=== PATIENT | female | born 1940 | race Caucasian/White ===

== ENCOUNTER 2016-04-22 14:35 | Inpatient (IN) | payer MEDICARE, BC ==
[~2016-04-22] VITALS: Ht 167.6 cm; Wt 86.4 kg
[~2016-04-22 14:35] MED LIST: ACET500T3 PO; ALPR.25 PO; APIX5TAB PO; ASPI81TA11 PO; CARD180C5 PO; CENTTAB PO; DIOV40TA PO; LEVE250 PO; LIPI40TA PO; LISI40TA PO; MELA5TAB15 PO; METO100T PO; POTA-243 PO; SERT-132 PO; TRIA37.5 PO
[2016-04-22 14:39] VITALS: BP 124/64; PULSE 63; RESP 20; TEMP 97.9; O2SAT 98
--- NOTE | 2016-04-22 14:54 | PD ---
HPI Chief Complaint: General Weakness Time Seen by Provider: 14:41 Travel History International Travel<30 days: No Contact w/Intl Traveler<30days: No Traveled to known affect area: No History of Present Illness HPI This is a 75-year-old female with a history of stroke who presents to the emergency department having woken up this morning feeling dizzy and not herself. When she got out of bed she felt like her left leg was very weak. She was unable to walk and felt like she was stumbling from side to side. She has difficulty seeing on the left side but she says that that's been similar since she had a stroke in February. She denies any headache or vomiting. Her retirement appreciated her symptoms and ran some tests and ultimately sent her to the emergency department to be evaluated for stroke. PFSH Past Medical History Arthritis: Yes Asthma: No Atrial Fibrillation: Yes Autoimmune Disease: No Blood Disorders: No Anxiety: Yes Depression: No Heart Rhythm Problems: Yes (afib) Cancer: No Cardiovascular Problems: Yes (CAD) High Cholesterol: No Chemotherapy: No Chest Pain: No Congestive Heart Failure: No COPD: Yes Cerebrovascular Accident: Yes Diabetes: No Diminished Hearing: Yes Endocrine: No GERD: No Genitourinary: No Hepatitis: No Hiatal Hernia: No Hypertension: Yes Immune Disorder: No Kidney Stones: No Musculoskeletal: Yes Neurologic: No Psychiatric: No Reproductive: No Respiratory: Yes Migraines: No Myocardial Infarction: Yes Radiation Therapy: No Renal Failure: No Seizures: No Sleep Apnea: No Thyroid Disease: No Ulcer: No ?: Not Menopausal: Yes Tubal Ligation: Yes Past Surgical History Abdominal Surgery: No AICD: No Arteriovenous Shunt: No Body Medical Devices: CERVICAL HARDWARE Cardiac Surgery: No Ear Surgery: Yes (RIGHT INNER EAR REPAIR ) Endocrine Surgery: No Eye Surgery: No Genitourinary Surgery: No Gynecologic Surgery: No Insulin Pump: No Joint Replacement: Yes (annetta knee and cervical spine) Oral Surgery: No Pacemaker: No Thoracic Surgery: No Other Surgery: Yes (VEINS STRIPPED) Social History Alcohol Use: No Tobacco Use: No Substance Use: No Allergies-Medications (Allergen,Severity, Reaction): Coded Allergies: No Known Allergies (Verified , 11/18/12) Reported Meds & Prescriptions Reported Meds & Active Scripts Active Acetaminophen 500 Mg Tab 1,000 Mg PO Q8HR PRN 30 Days Keppra (Levetiracetam) 250 Mg Tab 250 Mg PO Q12HR Cardizem CD 24 HR (Diltiazem CD 24 HR) 180 Mg Caper 180 Mg PO DAILY 30 Days Aspirin EC (Aspirin) 81 Mg Tabdr 81 Mg PO DAILY Xanax (Alprazolam) 0.25 Mg Tab 0.25 Mg PO HS Lipitor (Atorvastatin Calcium) 40 Mg Tab 40 Mg PO HS Eliquis (Apixaban) 5 Mg Tab 5 Mg PO Q12H Sertraline (Sertraline HCl) 50 Mg Tab 50 Mg PO DAILY Klor-Con 10 (Potassium Chloride) 10 Meq Tab 10 Meq PO DAILY Centrum Silver (Multiple Vitamins W/ Minerals) 1 Tab 1 Tab PO DAILY Metoprolol Tartrate 100 Mg Tab 100 Mg PO BID Lisinopril 40 Mg Tab 40 Mg PO DAILY Reported Tramadol (Tramadol HCl) 50 Mg Tab 2 Tab PO Q4H PRN Triamterene-Hydrochlorothiazide 50-25 Mg Cap 1 Cap PO DAILY Magnesium Oxide 500 Mg Tab 500 Mg PO DAILY Losartan (Losartan Potassium) 25 Mg Tab 25 Mg PO DAILY Lidocaine Patch 12 HR (Lidocaine) 5 % Patch 1 Patch TOPICAL BID Remove patch after 12 hours Melatonin 5 Mg Tab 6 Mg PO HS Review of Systems Except as stated in HPI: all other systems reviewed are Neg Physical Exam Narrative GENERAL:Well appearing, no acute distress SKIN: Warm and dry. HEAD: Atraumatic. Normocephalic. EYES: Pupils equal and round. No injection or drainage. ENT: Moist mucous membranes NECK: Trachea midline. CARDIOVASCULAR: Regular rate and rhythm. No murmur appreciated. RESPIRATORY: Clear to auscultation. Breath sounds equal bilaterally. GASTROINTESTINAL: Abdomen soft, non-tender, nondistended. MUSCULOSKELETAL: No obvious deformities. NEUROLOGICAL: Awake and alert. No obvious cranial nerve deficits. No dysarthria or aphasia. Left lower extremity drift. 4 out of 5 strength in the left lower extremity, 5 out of 5 strength in the right lower extremity. Left upper extremity ataxia. Poor vision of the left nasal visual field. PSYCHIATRIC: Appropriate mood and affect; insight and judgment normal. Data Data Last Documented VS Vital Signs Date Time Temp Pulse Resp B/P Pulse Ox O2 Delivery O2 Flow Rate FiO2 04/22/16 15:09 95 Room Air 04/22/16 14:39 97.9 63 20 124/64 Orders Electrocardiogram (04/22/16 14:49) Prothrombin Time / Inr (Pt) (04/22/16 14:49) Act Partial Throm Time (Ptt) (04/22/16 14:49) Complete Blood Count With Diff (04/22/16 14:49) Comprehensive Metabolic Panel (04/22/16 14:49) Troponin I (04/22/16 14:49) Ct Brain W/O Iv Contrast(Rout) (04/22/16 14:49) Ecg Monitoring (04/22/16 14:49) Iv Access Insert/Monitor (04/22/16 14:49) Oximetry (04/22/16 14:49) Cath For Specimen (04/22/16 14:49) Sodium Chloride 0.9% Flush (Ns Flush) (04/22/16 15:00) Urinalysis - C+S If Indicated (04/22/16 16:57) Admit Order (Ed Use Only) (04/22/16 17:05) Labs Laboratory Tests Test 04/22/16 04/22/16 15:40 16:50 White Blood Count 12.9 TH/MM3 Red Blood Count 4.44 MIL/MM3 Hemoglobin 14.4 GM/DL Hematocrit 42.7 % Mean Corpuscular Volume 96.2 FL Mean Corpuscular Hemoglobin 32.4 PG Mean Corpuscular Hemoglobin 33.7 % Concent Red Cell Distribution Width 13.4 % Platelet Count 262 TH/MM3 Mean Platelet Volume 9.1 FL Neutrophils (%) (Auto) 77.8 % Lymphocytes (%) (Auto) 11.9 % Monocytes (%) (Auto) 7.5 % Eosinophils (%) (Auto) 1.4 % Basophils (%) (Auto) 1.4 % Neutrophils # (Auto) 10.0 TH/MM3 Lymphocytes # (Auto) 1.5 TH/MM3 Monocytes # (Auto) 1.0 TH/MM3 Eosinophils # (Auto) 0.2 TH/MM3 Basophils # (Auto) 0.2 TH/MM3 CBC Comment AUTO DIFF Differential Total Cells 100 Counted Neutrophils % (Manual) 84 % Lymphocytes % 11 % Monocytes % 2 % Eosinophils % 3 % Neutrophils # (Manual) 10.8 TH/MM3 Differential Comment FINAL DIFF MANUAL Platelet Estimate NORMAL Platelet Morphology Comment NORMAL Prothrombin Time 10.7 SEC Prothromb Time International 1.0 RATIO Ratio Activated Partial 27.5 SEC Thromboplast Time Sodium Level 140 MEQ/L Potassium Level 3.7 MEQ/L Chloride Level 105 MEQ/L Carbon Dioxide Level 26.6 MEQ/L Anion Gap 8 MEQ/L Blood Urea Nitrogen 20 MG/DL Creatinine 1.08 MG/DL Estimat Glomerular Filtration 50 ML/MIN Rate Random Glucose 147 MG/DL Calcium Level 9.1 MG/DL Total Bilirubin 0.8 MG/DL Aspartate Amino Transf 16 U/L (AST/SGOT) Alanine Aminotransferase 22 U/L (ALT/SGPT) Alkaline Phosphatase 131 U/L Troponin I LESS THAN 0.02 NG/ML Total Protein 7.0 GM/DL Albumin 3.2 GM/DL Urine Color YELLOW Urine Turbidity CLEAR Urine pH 5.0 Urine Specific [place] 1.015 Urine Protein NEG mg/dL Urine Glucose (UA) NEG mg/dL Urine Ketones NEG mg/dL Urine Occult Blood NEG Urine Nitrite NEG Urine Bilirubin NEG Urine Urobilinogen LESS THAN 2.0 MG/DL Urine Leukocyte Esterase NEG Urine RBC 1 /hpf Urine WBC LESS THAN 1 /hpf Urine Mucus FEW /lpf Microscopic Urinalysis Comment CATH-CULT NOT IND MDM Medical Decision Making Medical Screen Exam Complete: Yes Emergency Medical Condition: Yes Interpretation(s) EKG: Atrial fibrillation Leukocytosis with left shift Troponin is normal Urinalysis: No infection Differential Diagnosis Ischemic stroke, intracranial hemorrhage, urinary tract infection, dehydration, seizure Narrative Course This is a 75-year-old female who presents to the emergency department with left lower extremity weakness and ataxia of the left upper extremity which is new. She was last normal yesterday. She is not a candidate for TPA because she is both on Eliquis and it seems her symptoms started overnight. She was placed on a monitor and an IV was established. Labs were obtained which were both for a mild leukocytosis. Urinalysis is negative for infection. CT was negative for intracranial hemorrhage. I think the patient requires admission for an MRI given her new neurologic findings as I suspect she's had a new ischemic stroke. Physician Communication Physician Communication Discussed with Dr. Menard Diagnosis Primary Impression: CVA (cerebral vascular accident) Qualified Code: I63.9 - Cerebrovascular accident (CVA), unspecified mechanism Admitting Information Admitting Physician Requests: Admit Olive Rodriguez MD Apr 22, 2016 14:54
[2016-04-22] MEDS ORDERED: LIDO1PAD52 TOPICAL (14:59)
[2016-04-22] MEDS ORDERED: LOSA25TA PO (14:59)
[2016-04-22] MEDS ORDERED: MAGN500T2 PO (14:59)
[2016-04-22] MEDS ORDERED: TRIA1CAP PO (14:59)
[2016-04-22] MEDS ORDERED: TRAM50TA PO (14:59)
[2016-04-22] MEDS ORDERED: SODIUM CHLORIDE 0.9% FLUSH 5 ML FLUSH IVF PRN ×2 (15:00→17:15)
[2016-04-22 15:09] VITALS: O2SAT 95
--- NOTE | 2016-04-22 15:34 | RADRPT ---
EXAM DATE/TIME: 04/22/2016 15:19 [facility] COMPARISON: MRI BRAIN W & W/O CONTRAST, February 24, 2016, 16:22. CT BRAIN W/O CONTRAST, February 28, 2016, 20: 50. INDICATIONS : Left leg weakness for four hours. RADIATION DOSE: 33.17 CTDIvol (mGy) MEDICAL HISTORY : Hypertension. Cardiovascular disease Stroke. SURGICAL HISTORY : Ear. ENCOUNTER: Initial ACUITY: 1 day PAIN SCALE: 0/10 LOCATION: cranial TECHNIQUE: Multiple contiguous axial images were obtained of the head. Using automated exposure control and adj ustment of the mA and/or kV according to patient size, radiation dose was kept as low as reasonably a chievable to obtain optimal diagnostic quality images. FINDINGS: CEREBRUM: The ventricles are normal for age. There is bilateral cortical atrophy and chronic white matter hardwick ges. Old stable areas of infarction are again noted in the right occipital lobe, right posterior michael etal lobe and left posterior parietal lobe without significant changes. No evidence of midline shift, mass lesion, hemorrhage or acute infarction. No extra-axial fluid collections are seen. POSTERIOR FOSSA: The cerebellum and brainstem are intact. The 4th ventricle is midline. The cerebellopontine angle i s unremarkable. EXTRACRANIAL: The visualized portion of the orbits is intact. SKULL: The calvaria is intact. No evidence of skull fracture. CONCLUSION: 1. Stable CT scan of the brain compared to the prior examination. 2. Stable areas of previously noted bilateral infarction. 3. No acute intracranial hemorrhage. Jeanmarie Alves MD on April 22, 2016 at 15:30 Board Certified Radiologist. This report was verified electronically.
[2016-04-22 16:01] LABS: BASOPHIL # 0.2 TH/MM3 (0-0.2); BASOPHIL % 1.4 % (0.0-2.0); EOSINOPHIL # 0.2 TH/MM3 (0-0.4); EOSINOPHIL % 1.4 % (0.0-4.0); HEMATOCRIT 42.7 % (35.0-46.0); LYMPH % 11.9 % (9.0-44.0); LYMPHOCYTE # 1.5 TH/MM3 (1.0-4.8); MEAN CELL VOLUME 96.2 FL (80.0-100.0); MEAN CORPUSCULAR HEMOGLOBIN 32.4 PG (27.0-34.0); MEAN CORPUSCULAR HGB CONC 33.7 % (32.0-36.0); MONO % 7.5 % (0.0-8.0); NEUT % 77.8 % (16.0-70.0); PLATELET COUNT 262 TH/MM3 (150-450); RED BLOOD COUNT 4.44 MIL/MM3 (4.00-5.30); RED CELL DISTRIBUTION WIDTH 13.4 % (11.6-17.2); WHITE BLOOD COUNT 12.9 TH/MM3 (4.0-11.0)
[2016-04-22 16:10] LABS: HEMO FLAGS AUTO DIFF
[2016-04-22 16:11] LABS: APTT (PATIENT) 27.5 SEC (24.3-30.1); PROTHROMBIN TIME - PATIENT 10.7 SEC (9.8-11.6)
[2016-04-22 16:32] LABS: ANION GAP 8 MEQ/L (5-15); AST (GOT) 16 U/L (15-37); BICARBONATE 26.6 MEQ/L (21.0-32.0); BLOOD UREA NITROGEN 20 MG/DL (7-18); CHLORIDE 105 MEQ/L (98-107); GLOMERULAR FILTRATION RATE 50 ML/MIN (>89); POTASSIUM 3.7 MEQ/L (3.5-5.1); SODIUM (NA) 140 MEQ/L (136-145)
[2016-04-22 16:36] LABS: EOSINOPHILS 3 % (0-4); NEUTROPHIL # MANUAL DIFF 10.8 TH/MM3 (1.8-7.7); POLYS (SEG NEUTROPHILS) 84 % (16-70); WBC DIFF SAMPLE 100
[2016-04-22 16:37] LABS: PLATELET ESTIMATE SMEAR NORMAL (NORMAL); PLATELET MORPHOLOGY NORMAL (NORMAL); SCAN/DIFF FINAL DIFF MANUAL
[2016-04-22 16:39] LABS: ALKALINE PHOSPHATASE 131 U/L (45-117); ALT (GPT) 22 U/L (10-53); TOTAL BILIRUBIN ADULT 0.8 MG/DL (0.2-1.0)
[2016-04-22 17:07] LABS: BLOOD, URINE NEG (NEG); GLUCOSE,URINE NEG (NEG); KETONE, URINE NEG (NEG); MUCUS URINE FEW /lpf (OCC); NITRITE,URINE NEG (NEG); URINE COLOR YELLOW (YELLW/STRAW)
[2016-04-22 17:08] LABS: COMMENT (UR) CATH-CULT NOT IND; CULTURE IF INDICATED CATH CULTURE NOT IND
[2016-04-22] MEDS ORDERED: LABETALOL HCL 100 MG/20 ML VIAL IV PRN (17:15)
--- NOTE | 2016-04-22 17:20 | HHI.HP ---
[facility] Moose Chan MD Admission Diagnosis stroke Diagnoses: Chief Complaint: left leg weakness (Fiorella Watson) Travel History International Travel<30 Days: No Contact w/Intl Traveler <30 Da: No Traveled to Known Affected Are: No (Fiorella Watson) History of Present Illness This is a 75-y.o white female who's undergoing rehab at [facility]. Pt. brought in for evaluation of left leg weakness. Pt. has PMHx of atrial fibrillation, chronic anticoagulation on Pradaxa, prior CVA 2, coronary artery disease, myocardial infarction in the past, sleep apnea on CPAP, tobacco abuse, COPD. Patient was recently admitted to the hospital from 02/19/2016 to for acute left basal ganglia and left thalamus infarct. Patient had been on Pradaxa prior to admission for history of CVA. Pt. discharged to [facility] however when she arrived to the unit, she complained of new visual field defect. A stroke alert was called and patient was transferred to ICU for evaluation. Imaging studies were completed, brain MRI showed acute left occipital and parietal lobe infarcts. CTA showed no acute occlusions. Distal internal carotid FMD well above the bifurcation both sides, localized perhaps 50 % occlusive. Dr. Hernández and neuro was consulted, evaluated patient and did not believe the patient would benefit for any vascular intervention as she had no significant stenosis, they continued her Eliquis, aspirin and statin. An EEG was completed showing bitemporal sharp, and pt. was started on Keppra. Pt. went to [facility] and was discharged to [facility] to continue rehab. Pt. evaluated in the ED, daughter at [facility]. Pt. is a poor historian but knows why she is in hospital. Per ED report, pt. went for PT today and therapist noted that pt. was dragging left leg which was a new finding. Per daughter, pt. was independent prior to rehab placement. At facility she has been progressing slowly, can only stand and pivot, only ambulating very little with assistance. Pt. denies any paresthesias, no slurring of speech, no headaches. Has poor peripheral vision from recent strokes and has become "worst". Pt. denies any other symptoms, no CP, no SOB, no fever, no chills, no abdominal pain, no diarrhea, no urinary symptoms. Pt. was evaluated in the ED, CT of head done did not show acute findings, stable areas of prior strokes. Last [address] 04/22/16 1449 Signed Impressions: Service Date/Time: Friday, April 22, 2016 15:19 - CONCLUSION: 1. Stable CT scan of the brain compared to the prior examination. 2. Stable areas of previously noted bilateral infarction. 3. No acute intracranial hemorrhage. Jeanmarie Alves MD Laboratory work up essentially unremarkable except for mild creat elevation and leukocytosis. Per daughter, pt. was on Coumadin initially but was stopped due to "body and joint aches", then was changed to Pradaxa until February. Because of recurrent strokes, she was recommended Coumadin but did not want to do the frequent lab testing therefore she was put on Eliquis. Pt. has been compliant taking medications. Pt. is resting comfortably, has no complaints. She did complain of dizziness to ED physician, but none at this time. States that she did notice that her left leg was weaker when she woke up this morning but did not notify staff. Pt. admitted for further evaluation and treatment. (Fiorella Watson) Review of Systems ROS Limitations: Poor Historian Constitutional: COMPLAINS OF: Dizziness Neurologic: COMPLAINS OF: Abnormal gait, Localized weakness, Poor Balance ( Fiorella Watson) Past Family Social History Past Medical History CVA 2 in the past, indicates she has problems with peripheral vision since stroke Hypertension Hyperlipidemia afib Myocardial infarction in the past Osteoporosis Arthritis Anxiety Tobacco abuse in the past COPD Asthma Sleep apnea uses CPAP 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 Started on Keppra Past Surgical History Left total knee arthroplasty Cervical hardware Right inner ear repair Vein stripping Reported Medications Reported Meds & Active Scripts Active Acetaminophen 500 Mg Tab 1,000 Mg PO Q8HR PRN 30 Days Keppra (Levetiracetam) 250 Mg Tab 250 Mg PO Q12HR Cardizem CD 24 HR (Diltiazem CD 24 HR) 180 Mg Caper 180 Mg PO DAILY 30 Days Aspirin EC (Aspirin) 81 Mg Tabdr 81 Mg PO DAILY Xanax (Alprazolam) 0.25 Mg Tab 0.25 Mg PO HS Lipitor (Atorvastatin Calcium) 40 Mg Tab 40 Mg PO HS Eliquis (Apixaban) 5 Mg Tab 5 Mg PO Q12H Sertraline (Sertraline HCl) 50 Mg Tab 50 Mg PO DAILY Klor-Con 10 (Potassium Chloride) 10 Meq Tab 10 Meq PO DAILY Centrum Silver (Multiple Vitamins W/ Minerals) 1 Tab 1 Tab PO DAILY Metoprolol Tartrate 100 Mg Tab 100 Mg PO BID Lisinopril 40 Mg Tab 40 Mg PO DAILY Reported Tramadol (Tramadol HCl) 50 Mg Tab 2 Tab PO Q4H PRN Triamterene-Hydrochlorothiazide 50-25 Mg Cap 1 Cap PO DAILY Magnesium Oxide 500 Mg Tab 500 Mg PO DAILY Losartan (Losartan Potassium) 25 Mg Tab 25 Mg PO DAILY Lidocaine Patch 12 HR (Lidocaine) 5 % Patch 1 Patch TOPICAL BID Remove patch after 12 hours Melatonin 5 Mg Tab 6 Mg PO HS (Fiorella Watson) Allergies: Coded Allergies: No Known Allergies (Verified , 04/22/16) Active Ordered Medications Inpatient Medications IV Flush (NS Flush) 2 ml UNSCH PRN IVF FLUSH AFTER USING IV ACCESS; Start 04/22 at 15:00 Family History Reviewed, positive for coronary artery disease Social History Patient was living alone, currently in [facility] rehab. Has a son in [place] and a daughter who lives in [place]. She is ambulating very little, able to stand , mostly uses wheelchair. Hx of frequent falls. She quit smoking in 2011, smoked half a pack 50+ years. No alcohol abuse, no substance abuse (Fiorella Watson) Physical Exam Vital Signs Vital Signs Date Time Temp Pulse Resp B/P Pulse Ox O2 Delivery O2 Flow Rate FiO2 04/22/16 15:09 95 Room Air 04/22/16 14:59 96 Room Air 04/22/16 14:39 97.9 63 20 124/64 98 Physical Exam GENERAL: This is a well-nourished, well-developed patient, in no apparent distress. SKIN: No rashes, ecchymoses or lesions. Cool and dry. HEAD: Atraumatic. Normocephalic. No temporal or scalp tenderness. EYES: Pupils equal round and reactive. Extraocular motions intact. No scleral icterus. No injection or drainage. ENT: Nose without bleeding, purulent drainage or septal hematoma. Throat without erythema, tonsillar hypertrophy or exudate. Uvula midline. Airway patent. NECK: Trachea midline. No JVD or lymphadenopathy. Supple, nontender, no meningeal signs. CARDIOVASCULAR: Regular rate and rhythm without murmurs, gallops, or rubs. RESPIRATORY: Clear to auscultation. Breath sounds equal bilaterally. No wheezes , rales, or rhonchi. GASTROINTESTINAL: Abdomen soft, non-tender, nondistended. No hepato-splenomegaly , or palpable masses. No guarding. MUSCULOSKELETAL: Limited ROM to right shoulder from OA, c/o pain. This is chronic. Other extremities without clubbing, cyanosis, or edema. No joint tenderness, effusion, or edema noted. No calf tenderness. Negative Homans sign bilaterally. NEUROLOGICAL: Awake and alert, oriented to place, month, situation, not sure of year. Following simple commands. [place] worst on the right. Weaker to LLE 3-4/5, RLE 4/5. BUE 4/5. Speech clear. Laboratory Laboratory Tests Test 04/22/16 04/22/16 15:40 16:50 White Blood Count 12.9 Red Blood Count 4.44 Hemoglobin 14.4 Hematocrit 42.7 Mean Corpuscular Volume 96.2 Mean Corpuscular Hemoglobin 32.4 Mean Corpuscular Hemoglobin 33.7 Concent Red Cell Distribution Width 13.4 Platelet Count 262 Mean Platelet Volume 9.1 Neutrophils (%) (Auto) 77.8 Lymphocytes (%) (Auto) 11.9 Monocytes (%) (Auto) 7.5 Eosinophils (%) (Auto) 1.4 Basophils (%) (Auto) 1.4 Neutrophils # (Auto) 10.0 Lymphocytes # (Auto) 1.5 Monocytes # (Auto) 1.0 Eosinophils # (Auto) 0.2 Basophils # (Auto) 0.2 CBC Comment AUTO DIFF Differential Total Cells 100 Counted Neutrophils % (Manual) 84 Lymphocytes % 11 Monocytes % 2 Eosinophils % 3 Neutrophils # (Manual) 10.8 Differential Comment FINAL DIFF MANUAL Platelet Estimate NORMAL Platelet Morphology Comment NORMAL Prothrombin Time 10.7 Prothromb Time International 1.0 Ratio Activated Partial 27.5 Thromboplast Time Sodium Level 140 Potassium Level 3.7 Chloride Level 105 Carbon Dioxide Level 26.6 Anion Gap 8 Blood Urea Nitrogen 20 Creatinine 1.08 Estimat Glomerular Filtration 50 Rate Random Glucose 147 Calcium Level 9.1 Total Bilirubin 0.8 Aspartate Amino Transf 16 (AST/SGOT) Alanine Aminotransferase 22 (ALT/SGPT) Alkaline Phosphatase 131 Troponin I LESS THAN 0.02 Total Protein 7.0 Albumin 3.2 Urine Color YELLOW Urine Turbidity CLEAR Urine pH 5.0 Urine Specific [place] 1.015 Urine Protein NEG Urine Glucose (UA) NEG Urine Ketones NEG Urine Occult Blood NEG Urine Nitrite NEG Urine Bilirubin NEG Urine Urobilinogen LESS THAN 2.0 Urine Leukocyte Esterase NEG Urine RBC 1 Urine WBC LESS THAN 1 Urine Mucus FEW Microscopic Urinalysis Comment CATH-CULT NOT IND (Fiorella Watson) Result Diagram: 04/22/16 1540 04/22/16 1540 Imaging Last Impressions Head CT 04/22/16 1449 Signed Impressions: Service Date/Time: Friday, April 22, 2016 15:19 - CONCLUSION: 1. Stable CT scan of the brain compared to the prior examination. 2. Stable areas of previously noted bilateral infarction. 3. No acute intracranial hemorrhage. Jeanmarie Alves MD (Fiorella Watson) Assessment and Plan Problem List: (1) Left leg weakness (2) History of CVA (cerebrovascular accident) (3) Hypertension (4) Hyperlipidemia (5) CAD (coronary artery disease) (6) Vision loss (7) Anxiety (8) Atrial fibrillation (9) COPD (chronic obstructive pulmonary disease) (10) Arthritis (11) Seizure prophylaxis Assessment and Plan Admit to Dr. Menard 75-y.o white female with hx of recent CVA x 07 February 2016, was on Pradaxa several years, was changed to Eliquis. Prior to admit, hx of CVA x 2, had been on Coumadin which was changed to Pradaxa. Has residual generalized weakness , poor peripheral vision. Currently undergoing rehab at SNF. Pt. brought in for evaluation of left leg weakness. CT head negative. Admitted for recurrent CVA. -neuro checks -Neurology consultation -Continue Eliquis for now, will defer to neurology for any change in anticoagulation. Pt. has been on Coumadin and Pradaxa. -Continue statins, ASA -Had recent Echo, will not order at this time -MRI/MRA brain now -Telemetry monitoring -PT/OT/ST ordered -Bedrest -Permissive HTN x 24 hours -IV NS at 75/hr Atrial fibrillation, well controlled -Telemetry monitoring -Resume Lopressor and Cardizem -Continue Eliquis Seizure disorder -Seizure precautions -Continue Keppra HTN, stable -Continue home meds COPD, stable -Duonebs PRN Sleep apnea -Daughter to bring CPAP from SNF, continue OA right shoulder -Lidocaine patch -Tylenol PRN Home medications reviewed, initiated as indicated. Continue Eliquis for DVT prophylaxis Plan of care discussed with attending, RN, and pt. Further management of the pt. will be dependent on the hospital course. This patient was seen by myself and Dr. Menard, this H/P is written on his behalf. (Fiorella Watson) Assessment and Plan pt evaluation done chart reviwed meds labs rad data and notes reviwed plan of care leann serrano (Mayra Menard MD) Physician Certification 2 Midnight Certification Type: Admission for Inpatient Services Order for Inpatient Services The services are ordered in accordance with Medicare regulations or non- Medicare payer requirements, as applicable. In the case of services not specified as inpatient-only, they are appropriately provided as inpatient services in accordance with the 2-midnight benchmark. Estimated LOS (days): 2 2 days is the estimated time the patient will need to remain in the hospital, assuming treatment plan goals are met and no additional complications. Post-Hospital Plan: Not yet determined (Fiorella Watson) Problem Qualifiers (1) Hypertension: Qualified Code: I10 - Essential hypertension (2) Hyperlipidemia: Qualified Code: E78.5 - Hyperlipidemia, unspecified hyperlipidemia type (3) CAD (coronary artery disease): Qualified Code: I25.10 - Coronary artery disease involving [place] coronary artery of [place] heart without angina pectoris (4) Atrial fibrillation: Qualified Code: I48.2 - Chronic atrial fibrillation (5) COPD (chronic obstructive pulmonary disease): Qualified Code: J44.9 - Chronic obstructive pulmonary disease, unspecified COPD type Fiorella Watson Apr 22, 2016 17:20 Mayra Menard MD Apr 23, 2016 07:03
[2016-04-22 17:38] VITALS: BP 153/88; PULSE 60; RESP 16; O2SAT 95
[2016-04-22] MEDS: APIXABAN 5 MG TABLET PO SCH (18:00)
[2016-04-22] MEDS ORDERED: RESP: ALBUTEROL 2.5 MG/IPRATROPIUM 0.5 MG NEB (PRN) NEB (18:15)
--- NOTE | 2016-04-22 19:10 | RADRPT ---
EXAM DATE/TIME: 04/22/2016 18:04 [facility] COMPARISON: CT BRAIN W/O CONTRAST, April 22, 2016, 15:19. MRI BRAIN W & W/O CONTRAST, February 24, 2016, 16:2 2. INDICATIONS : CVA. MEDICAL HISTORY : Stroke Hypertension. Afib SURGICAL HISTORY : Total knee replacement, left. Total knee replacement, right. ENCOUNTER: Initial ACUITY: 2 day PAIN SCORE: 2/10 LOCATION: Bilateral cranial TECHNIQUE: Multiplanar, multisequence MRI of the brain was performed without contrast. FINDINGS: 1 cm focus of restricted diffusion seen in the right basal ganglia, series 11 image 36. Severe, chronic flair signal abnormality seen in the bilateral periventricular white matter. There ar e nonacute cortical and subcortical infarcts of both occipital and parietal lobes again noted. No acute hemorrhage demonstrated. There is old hemosiderin deposition in the right occipital lobe. No mass, mass effect or midline shift seen. CONCLUSION: 1. Focal acute or subacute right basal ganglia infarct. 2. Otherwise chronic ischemic/infarct changes as above. 3. No acute bleed. No mass effect or midline shift. Kristopher Barr MD on April 22, 2016 at 19:06 Board Certified Radiologist. This report was verified electronically.
--- NOTE | 2016-04-22 19:15 | RADRPT ---
EXAM DATE/TIME: 04/22/2016 18:04 [place] COMPARISON: MRI BRAIN W/O CONTRAST, April 22, 2016, 18:04. CTA BRAIN W 3D RECON, February 24, 2016, 15:53. INDICATIONS : CVA. MEDICAL HISTORY : Hypertension. Stroke Afib SURGICAL HISTORY : Bilateral knee replacement. ENCOUNTER: Initial ACUITY: 2 day PAIN SCORE: 2/10 LOCATION: Bilateral cranial Please note a normal MRA of the brain does not entirely exclude the possibility of a small aneurysm, nor the possibility of distal intracranial vessel disease. TECHNIQUE: 3D time of flight MRA was performed. Source images, multiplanar STS MIP, and 3D volume MIP reconstru ctions were reviewed. FINDINGS: There is nonocclusive thrombus in the right internal carotid artery at the level of the skull base an d upper, visualized neck. There is associated poor filling of the right middle cerebral artery and it s distal branches. There is also poor filling of the right A1 segment but fairly good filling of the A2 and distal segments via a patent anterior communicating. No acute abnormality is seen of the poste rior circulation. 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 Kritsopher Barr MD on April 22, 2016 at 19:10 Board Certified Radiologist. This report was verified electronically.
[2016-04-22 20:28] VITALS: BP 122/62; PULSE 81; RESP 18; TEMP 96.3; O2SAT 98
[2016-04-22 21:00] VITALS: O2SAT 95
[2016-04-22] MEDS ORDERED: LIDOCAINE HCL 5% PATCH TD SCH (21:00)
[2016-04-22] MEDS: REMOVE OLD LIDOCAINE PATCH TD SCH (21:00)
[2016-04-22 21:15] LABS: HEMOGLOBIN A1a 1.1 %; HEMOGLOBIN A1b 1.2 %; HEMOGLOBIN Ao 83.3 %; HEMOGLOBIN LA1C 2.2 %; HEMOGLOBIN P3 4.2 %
[2016-04-22] MEDS: METOPROLOL TARTRATE 100 MG TAB PO SCH (22:20)
[2016-04-22] MEDS: SODIUM CHLORIDE 0.9% FLUSH 5 ML FLUSH IVF SCH (22:20)
[2016-04-22] MEDS: levETIRAcetam 250 MG TAB PO SCH (22:20)
[2016-04-22] MEDS: ATORVASTATIN 40 MG TAB PO SCH (22:21)
[2016-04-23] VITALS (10 sets, daily range): BP systolic 120–143; BP diastolic 67–92; PULSE 60–100; RESP 18–20; TEMP 95.6–97.4; O2SAT 96–99
[2016-04-23] MEDS ORDERED: ACETAMINOPHEN/HYDROcodone 325 MG/5 MG TAB PO ONE (01:15)
[2016-04-23] MEDS: diphenhydrAMINE HCL 25 MG CAP PO PRN (01:26)
[2016-04-23] MEDS: APIXABAN 5 MG TABLET PO SCH ×2 (06:23→18:09)
--- NOTE | 2016-04-23 08:01 | PD.CONS ---
HPI Service CV Consult Requested By [place] [facility] Reason for Consult CVA Primary Care Physician Moose Chan MD History of Present Illness This is a 75 yo WF with hx of atrial fibrillation, CAD/MS, HTN, HLD, COPD, sleep apnea and recent hospitalization in Feb 2016 for CVA who was admitted yesterday for new onset left leg weakness. She has been residing in a rehab facility in [place]. She is anticoagulated on Pradaxa. Head CT negative, ECG shows afib. She denies chest pain, SOB or palpitations. She is resting comfortably, alert and oriented. (Rebeca Andrea) Review of Systems Consitutional: COMPLAINS OF: Fatigue, Weight gain, Weight loss, DENIES: Fever , Chills Respiratory: COMPLAINS OF: See HPI, Snoring, DENIES: Cough, Shortness of breath, Wheezing, Sputum production Cardiovascular: COMPLAINS OF: See HPI, Syncope, Tachycardia, DENIES: Chest pain, Palpitations Gastrointestinal: COMPLAINS OF: Change in bowel habits, Reflux, Bloody stools, Melena, DENIES: Nausea, Vomiting (Rebeca Andrea) Past Family Social History Allergies: Coded Allergies: No Known Allergies (Verified , 04/22/16) Past Medical History CVA 2 in the past, indicates she has problems with peripheral vision since stroke Hypertension Hyperlipidemia afib Myocardial infarction in the past Osteoporosis Arthritis Anxiety Tobacco abuse in the past COPD Asthma Sleep apnea uses CPAP 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 Started on Kep Past Surgical History Left total knee arthroplasty Cervical hardware Right inner ear repair Vein stripping Active Ordered Medications Current Medications Medications (Trade) Dose Ordered Sig/Anthony Route Start Time Stop Time Status Last Admin (NS Flush) 2 ml BID IVF 04/22/16 21:00 04/22/16 22:20 (NS Flush) 2 ml UNSCH PRN IVF 04/22/16 17:15 (Trandate Inj) 10 mg Q2H PRN IV 04/22/16 17:15 (Eliquis) 5 mg Q12H PO 04/22/16 18:00 04/23/16 06:23 (Ecotrin Ec) 81 mg DAILY PO 04/23/16 09:00 (Lipitor) 40 mg HS PO 04/22/16 21:00 04/22/16 22:21 (Cardizem Cd) 180 mg DAILY PO 04/23/16 09:00 (Keppra) 250 mg Q12HR PO 04/22/16 21:00 04/22/16 22:20 (Prinivil) 40 mg DAILY PO 04/23/16 09:00 (Cozaar) 25 mg DAILY PO 04/23/16 09:00 (Lopressor) 100 mg BID PO 04/22/16 21:00 04/22/16 22:20 (KCl) 10 meq DAILY PO 04/23/16 09:00 (Zoloft) 50 mg DAILY PO 04/23/16 09:00 (Lidoderm 5% Patch.12 Hr) 1 patch Q24H TD 04/23/16 09:00 Miscellaneous Information 1 Q24H TD 04/22/16 21:00 04/22/16 21:00 Patient Own Medication PT OWN MED: TRIAMTERENE/ HCTZ 50/25... DAILY PO 04/23/16 09:00 Future Hold (Benadryl) 25 mg HS PRN PO 04/23/16 01:15 04/23/16 01:26 Family History positive for coronary artery disease Social History Patient was living alone, currently in [facility]. Has a son in [place] and a daughter who lives in [place]. She is ambulating very little, able to stand , mostly uses wheelchair. Hx of frequent falls. She quit smoking in 2011, smoked half a pack 50+ years. No alcohol abuse, no substance abuse (Rebeca Andrea) Physical Exam Vital Signs Vital Signs Date Time Temp Pulse Resp B/P Pulse Ox O2 Delivery O2 Flow Rate FiO2 04/23/16 05:39 96.7 71 20 120/70 99 04/23/16 02:38 19 04/23/16 02:14 72 04/23/16 00:00 97.4 82 20 141/77 97 04/22/16 21:00 95 04/22/16 20:28 96.3 81 18 122/62 98 04/22/16 17:38 60 16 153/88 95 Room Air 04/22/16 15:09 95 Room Air 04/22/16 14:59 96 Room Air 04/22/16 14:39 97.9 63 20 124/64 98 Physical Exam GENERAL: SKIN: Warm and dry. HEAD: Atraumatic. Normocephalic. NECK: Trachea midline. No JVD. CARDIOVASCULAR: irregularly irregular rate and rhythm. RESPIRATORY: No accessory muscle use. Clear to auscultation. Breath sounds equal bilaterally. wearing rebreather mask GASTROINTESTINAL: Abdomen soft, non-tender, nondistended. Hepatic and splenic margins not palpable. MUSCULOSKELETAL: Extremities without clubbing, cyanosis, or edema. No obvious deformities. NEUROLOGICAL: Awake and alert. No obvious cranial nerve deficits. Motor grossly within normal limits. Five out of 5 muscle strength in the arms and legs. Normal speech. PSYCHIATRIC: Appropriate mood and affect; insight and judgment normal. Laboratory Laboratory Tests Test 04/22/16 04/22/16 15:40 16:50 White Blood Count 12.9 Red Blood Count 4.44 Hemoglobin 14.4 Hematocrit 42.7 Mean Corpuscular Volume 96.2 Mean Corpuscular Hemoglobin 32.4 Mean Corpuscular Hemoglobin 33.7 Concent Red Cell Distribution Width 13.4 Platelet Count 262 Mean Platelet Volume 9.1 Neutrophils (%) (Auto) 77.8 Lymphocytes (%) (Auto) 11.9 Monocytes (%) (Auto) 7.5 Eosinophils (%) (Auto) 1.4 Basophils (%) (Auto) 1.4 Neutrophils # (Auto) 10.0 Lymphocytes # (Auto) 1.5 Monocytes # (Auto) 1.0 Eosinophils # (Auto) 0.2 Basophils # (Auto) 0.2 CBC Comment AUTO DIFF Differential Total Cells 100 Counted Neutrophils % (Manual) 84 Lymphocytes % 11 Monocytes % 2 Eosinophils % 3 Neutrophils # (Manual) 10.8 Differential Comment FINAL DIFF MANUAL Platelet Estimate NORMAL Platelet Morphology Comment NORMAL Prothrombin Time 10.7 Prothromb Time International 1.0 Ratio Activated Partial 27.5 Thromboplast Time Sodium Level 140 Potassium Level 3.7 Chloride Level 105 Carbon Dioxide Level 26.6 Anion Gap 8 Blood Urea Nitrogen 20 Creatinine 1.08 Estimat Glomerular Filtration 50 Rate Random Glucose 147 Hemoglobin A1c 6.6 Calcium Level 9.1 Total Bilirubin 0.8 Aspartate Amino Transf 16 (AST/SGOT) Alanine Aminotransferase 22 (ALT/SGPT) Alkaline Phosphatase 131 Troponin I LESS THAN 0.02 Total Protein 7.0 Albumin 3.2 Vitamin B12 Level 666 Thyroid Stimulating Hormone 1.580 3rd Gen Urine Color YELLOW Urine Turbidity CLEAR Urine pH 5.0 Urine Specific [place] 1.015 Urine Protein NEG Urine Glucose (UA) NEG Urine Ketones NEG Urine Occult Blood NEG Urine Nitrite NEG Urine Bilirubin NEG Urine Urobilinogen LESS THAN 2.0 Urine Leukocyte Esterase NEG Urine RBC 1 Urine WBC LESS THAN 1 Urine Mucus FEW Microscopic Urinalysis Comment CATH-CULT NOT IND (Rebeca Andrea) Result Diagram: 04/22/16 1540 04/22/16 1540 Imaging Last [address] 04/22/16 1449 Signed Impressions: Service Date/Time: Friday, April 22, 2016 15:19 - CONCLUSION: 1. Stable CT scan of the brain compared to the prior examination. 2. Stable areas of previously noted bilateral infarction. 3. No acute intracranial hemorrhage. Jeanmarie Alves MD (Rebeca Andrea) Assessment and Plan Assessment and Plan 75 to with hx of chronic atrial fibrillation anticoagulated on Pradaxa and ASA. Rate controlled on bb and Cardizem. She has recent hx of CVA x 2 and seizure activity seen on ECG last year. She developed acute onset left leg weakness yesterday at PT while recovering in rehab facility in [place]. ECG shows afib. CT head neg. (Rebeca Andrea) Assessment and Plan agree with above will sign off call with questions (Santy Montes MD) Rebeca Andrea Apr 23, 2016 08:01 Santy Montes MD Apr 23, 2016 17:12
[2016-04-23] MEDS ORDERED: HYDROCHLOROTHIAZIDE PO SCH (09:00)
[2016-04-23] MEDS ORDERED: TRIAMTERENE PO SCH (09:00)
[2016-04-23] MEDS ORDERED: TRIAMTERENE HYDROCHLOROTHIAZIDE PO SCH (09:00)
[2016-04-23] MEDS: LIDOCAINE HCL 5% PATCH TD SCH (09:16)
[2016-04-23] MEDS: REMOVE OLD LIDOCAINE PATCH TD SCH (09:16)
[2016-04-23] MEDS: DILTIAZEM-CD 180 MG CAP ER PO SCH (09:17)
[2016-04-23] MEDS: METOPROLOL TARTRATE 100 MG TAB PO SCH ×2 (09:17→21:37)
[2016-04-23] MEDS: ASPIRIN EC 81 MG TABEC PO SCH (09:17)
[2016-04-23] MEDS: POTASSIUM CHLORIDE 10 MEQ CONTROLLED RELEASE TAB PO SCH (09:17)
[2016-04-23] MEDS: LOSARTAN 25 MG TAB PO SCH (09:17)
[2016-04-23] MEDS: levETIRAcetam 250 MG TAB PO SCH ×2 (09:18→21:37)
[2016-04-23] MEDS: LISINOPRIL 20 MG TAB PO SCH (09:18)
[2016-04-23] MEDS: SERTRALINE HCL 50 MG TAB PO SCH (09:18)
[2016-04-23] MEDS: SODIUM CHLORIDE 0.9% FLUSH 5 ML FLUSH IVF SCH ×2 (09:19→21:38)
--- NOTE | 2016-04-23 09:42 | HHI.PR ---
Subjective Remarks awake, alert oriented to place, situation, year left leg mobility improved no headache no vision changes no cp no sob tele afib has been seen by neurology Objective Objective Results - Vital Signs Date Time Temp Pulse Resp B/P Pulse Ox O2 Delivery O2 Flow Rate FiO2 04/23/16 09:03 96 21 04/23/16 08:02 95.6 68 20 143/92 99 04/23/16 05:39 96.7 71 20 120/70 99 04/23/16 02:38 19 04/23/16 02:14 72 04/23/16 00:00 97.4 82 20 141/77 97 04/22/16 21:00 95 04/22/16 20:28 96.3 81 18 122/62 98 04/22/16 17:38 60 16 153/88 95 Room Air 04/22/16 15:09 95 Room Air 04/22/16 14:59 96 Room Air 04/22/16 14:39 97.9 63 20 124/64 98 I/O 04/22/16 04/22/16 04/22/16 04/23/16 04/23/16 04/23/16 07:00 15:00 23:00 07:00 15:00 23:00 Intake Total 120 ml Balance 120 ml Intake Oral 120 ml # Voids 2 1 # Bowel Movements 0 Result Diagram: 04/22/16 1540 04/22/16 1540 Imaging Last Impressions Head CT 04/22/16 1449 Signed Impressions: Service Date/Time: Friday, April 22, 2016 15:19 - CONCLUSION: 1. Stable CT scan of the brain compared to the prior examination. 2. Stable areas of previously noted bilateral infarction. 3. No acute intracranial hemorrhage. Jeanmarie Alves MD Other Results Laboratory Tests Test 04/22/16 04/22/16 04/23/16 15:40 16:50 06:40 White Blood Count 12.9 Red Blood Count 4.44 Hemoglobin 14.4 Hematocrit 42.7 Mean Corpuscular Volume 96.2 Mean Corpuscular Hemoglobin 32.4 Mean Corpuscular Hemoglobin 33.7 Concent Red Cell Distribution Width 13.4 Platelet Count 262 Mean Platelet Volume 9.1 Neutrophils (%) (Auto) 77.8 Lymphocytes (%) (Auto) 11.9 Monocytes (%) (Auto) 7.5 Eosinophils (%) (Auto) 1.4 Basophils (%) (Auto) 1.4 Neutrophils # (Auto) 10.0 Lymphocytes # (Auto) 1.5 Monocytes # (Auto) 1.0 Eosinophils # (Auto) 0.2 Basophils # (Auto) 0.2 CBC Comment AUTO DIFF Differential Total Cells 100 Counted Neutrophils % (Manual) 84 Lymphocytes % 11 Monocytes % 2 Eosinophils % 3 Neutrophils # (Manual) 10.8 Differential Comment FINAL DIFF MANUAL Platelet Estimate NORMAL Platelet Morphology Comment NORMAL Prothrombin Time 10.7 Prothromb Time International 1.0 Ratio Activated Partial 27.5 Thromboplast Time Sodium Level 140 Potassium Level 3.7 Chloride Level 105 Carbon Dioxide Level 26.6 Anion Gap 8 Blood Urea Nitrogen 20 Creatinine 1.08 Estimat Glomerular Filtration 50 Rate Random Glucose 147 Hemoglobin A1c 6.6 Calcium Level 9.1 Total Bilirubin 0.8 Aspartate Amino Transf 16 (AST/SGOT) Alanine Aminotransferase 22 (ALT/SGPT) Alkaline Phosphatase 131 Troponin I LESS THAN 0.02 Total Protein 7.0 Albumin 3.2 Vitamin B12 Level 666 Thyroid Stimulating Hormone 1.580 3rd Gen Urine Color YELLOW Urine Turbidity CLEAR Urine pH 5.0 Urine Specific [place] 1.015 Urine Protein NEG Urine Glucose (UA) NEG Urine Ketones NEG Urine Occult Blood NEG Urine Nitrite NEG Urine Bilirubin NEG Urine Urobilinogen LESS THAN 2.0 Urine Leukocyte Esterase NEG Urine RBC 1 Urine WBC LESS THAN 1 Urine Mucus FEW Microscopic Urinalysis Comment CATH-CULT NOT IND Triglycerides Level 117 Cholesterol Level 119 LDL Cholesterol 41 HDL Cholesterol 55.0 Cholesterol/HDL Ratio 2.16 ROS General: Weakness, No: Fatigue, Other HEENT: No: Sore Throat, Dysphagia Cardiac: No: Chest Pain, Edema, Palpitations Pulmonary: No: Cough, SOB, Wheezing GI: No: Abdominal Pain, BM, Diarrhea, N/V /[employer]: No: Dysuria, Urgency Neuro/MS: No: Lightheaded, Confusion Psych: No: Anxiety, Depression Skin: No: Itching, Rash Physical Exam Physical Exam GENERAL: This is a well-nourished, well-developed patient, in no apparent distress. SKIN: No rashes, ecchymoses or lesions. Cool and dry. HEAD: Atraumatic. Normocephalic. No temporal or scalp tenderness. EYES: Pupils equal round and reactive. Extraocular motions intact. No scleral icterus. No injection or drainage. ENT: Nose without bleeding, purulent drainage or septal hematoma. Throat without erythema, tonsillar hypertrophy or exudate. Uvula midline. Airway patent. NECK: Trachea midline. No JVD or lymphadenopathy. Supple, nontender, no meningeal signs. CARDIOVASCULAR: Regular rate and rhythm without murmurs, gallops, or rubs. RESPIRATORY: Clear to auscultation. Breath sounds equal bilaterally. No wheezes , rales, or rhonchi. GASTROINTESTINAL: Abdomen soft, non-tender, nondistended. No hepato-splenomegaly , or palpable masses. No guarding. MUSCULOSKELETAL: Limited ROM to right shoulder from OA, c/o pain. This is chronic. Other extremities without clubbing, cyanosis, or edema. No joint tenderness, effusion, or edema noted. No calf tenderness. Negative Homans sign bilaterally. NEUROLOGICAL: Awake and alert, oriented to place, month, situation, not sure of year. Following simple commands. [place] worst on the right. Weaker to LLE 3-4/5, RLE 4/5. BUE 4/5. Speech clear. Urinary Catheter: No Vascular Central Line Catheter: No A/P Diagnosis: (1) Left leg weakness (2) History of CVA (cerebrovascular accident) (3) Hypertension (4) Hyperlipidemia (5) CAD (coronary artery disease) (6) Vision loss (7) Anxiety (8) Atrial fibrillation (9) COPD (chronic obstructive pulmonary disease) (10) Arthritis (11) Seizure prophylaxis Assessment and Plan 75-y.o white female with hx of recent CVA x 07 February 2016, was on Pradaxa several years, was changed to Eliquis. Prior to admit, hx of CVA x 2, had been on Coumadin which was changed to Pradaxa. Has residual generalized weakness , poor peripheral vision. Currently undergoing rehab at SNF. Pt. brought in for evaluation of left leg weakness. CT head negative. Admitted for recurrent CVA. -neuro checks -Neurology input appreciated -Continue Eliquis. Pt. has been on Coumadin and Pradaxa. -Continue statins, ASA -Had recent Echo, will not order at this time -Brain MRI results noted, acute/subacute right basal ganglia infarct, MRA brain non occlusive thrombosis of right ICA -Telemetry monitoring -PT/OT/ST -OOB with PT -D/W Dr. Ossi, recommends Xarelto as pt. has failed on previous anticoagulants. Pt. continues to refuse Coumadin, doesn't want frequent lab monitoring. Atrial fibrillation, well controlled -Telemetry monitoring -continue Lopressor and Cardizem -Continue Eliquis Seizure disorder -Seizure precautions -Continue Keppra HTN, stable -Continue home meds COPD, stable -Duonebs PRN Sleep apnea -Continue CPAP OA right shoulder -Lidocaine patch -Tylenol PRN Continue Eliquis for DVT prophylaxis continue with above tx CM discharge planning, back to SNF 1-2 days D/W RN D/W Dr. Baker D/W pt. This patient was seen by myself and Dr. aBker, this note is written on his behalf. Problem Qualifiers (1) Hypertension: Qualified Code: I10 - Essential hypertension (2) Hyperlipidemia: Qualified Code: E78.5 - Hyperlipidemia, unspecified hyperlipidemia type (3) CAD (coronary artery disease): Qualified Code: I25.10 - Coronary artery disease involving beaver coronary artery of beaver heart without angina pectoris (4) Atrial fibrillation: Qualified Code: I48.2 - Chronic atrial fibrillation (5) COPD (chronic obstructive pulmonary disease): Qualified Code: J44.9 - Chronic obstructive pulmonary disease, unspecified COPD type Fiorella Watson Apr 23, 2016 09:41
[2016-04-23 10:35] LABS: RAPID PLASMA REAGIN SCREEN NON-REACTIVE (NON-REACTVE)
--- NOTE | 2016-04-23 13:11 | MB ---
cc: MIGUEL ANGEL ALBA MD DATE OF CONSULTATION: 04/23/2016 REASON FOR CONSULTATION Stroke. HISTORY OF PRESENT ILLNESS A 75-year-old female who was transported from rehab at [facility] for evaluation of recent onset left leg weakness, past medical history of atrial fibrillation currently on Eliquis 5 mg twice daily, twice h/o strokes, coronary artery disease, History of OK, sleep apnea on CPAP, tobacco abuse and COPD. The patient was admitted in February 2016 from 02/19/2016 to 02/24/2016 for an acute ischemic left basal ganglia and left thalamus infarction. The patient was on Pradaxa prior to that admission for a previous stroke and Pradaxa was switched to Eliquis as per Dr. Rasmussen who was her franchise field consultant neurologist. The patient sustained another stroke and a Stroke Alert was called for a new visual field defect. Imaging studies revealed acute left occipital and parietal lobe infarcts, CTA with no acute occlusions. The patient was deemed not to benefit from any vascular intervention and was continued on Eliquis, aspirin and a statin. An EEG was done at that time that revealed bitemporal sharp. The patient was started on Keppra. At the [facility] rehab facility the therapist noted that the patient was dragging her left leg and that was a new finding. The patient denies headache, double vision, blurred vision, numbness of the face or left side of the body, or slurred speech. However, she states that she has poor peripheral vision from recent stroke. Head CT scan done in the ED was stable with no acute intracranial abnormality and stable areas of previously noted bilateral infarction in the right occipital lobe, right posterior parietal lobe and left posterior parietal lobe without significant changes. A review of the previous records revealed that the patient was on Coumadin initially but was stopped due to "body and joint aches." This was changed to Pradaxa until February where she had a stroke and considered to have failed Pradaxa and Coumadin was recommended, but the patient declined and she was switched to Eliquis. The patient is compliant with her medications. REVIEW OF SYSTEMS A 12-point review of systems is negative except for what is stated in the HPI. PAST MEDICAL HISTORY 1. Two strokes with residual peripheral vision abnormality on both sides. 2. Hypertension. 3. Hyperlipidemia. 4. Atrial fibrillation. 5. OK. 6. Arthritis. 7. Anxiety. 8. Tobacco abuse. 9. COPD. 10. Asthma. 11. Sleep apnea on CPAP. 12. History of left thalamus, left basal ganglia stroke 02/21/2016. 13. History of acute ischemic left occipital parietal lobe on 02/24/2016. 14. Recent diagnosis of abnormal EEG where she was started on Keppra in February 2016. PAST SURGICAL HISTORY 1. Left total knee arthroplasty. 2. Cervical hardware. 3. Right inguinal hernia repair. 4. Vein stripping. MEDICATIONS 1. Keppra 250 mg twice daily. 2. Aspirin 81 mg. 3. Xanax. 4. Eliquis 5 mg q.12h. 5. Sertraline. 6. Centrum. 7. Metoprolol. 8. Lisinopril. PHYSICAL EXAMINATION GENERAL: Well-nourished, pleasant, good historian, not in apparent distress. At the beginning of the encounter she was using the CPAP. HEENT: Atraumatic, normocephalic. Intact hearing bilaterally. Diminished temporal visual mendes due to recurrent strokes. NECK: No JVD. Supple. Nontender. No meningeal signs. No carotid bruits. CARDIOVASCULAR: Regular rate and rhythm. RESPIRATORY: Clear to auscultation. No wheezes. MUSCULOSKELETAL: Limited range of movement of the right shoulder because of pain and this is chronic with limitation with pain and moving both hips due to chronic pain. Moves all extremities. No abnormal posture. NEUROLOGIC: Awake, alert and oriented to time, person and place. Intact speech content. Cranial nerves II-XII are grossly intact. No facial drooping is noted. Motor system examination is limited due to generalized joint pains. Documents the accuracy of the test, however, the patient is grossly 5/5 throughout except for 5-/5 left hip flexion and left knee extension. Reflexes are 1+ bilateral in the upper extremities, crossed adductor reflex. Plantars are bilaterally downgoing. Sensation is intact throughout bilateral and symmetrical. Cerebellar signs are intact bilateral and symmetrical [id number] and [id number]. PSYCHOLOGICAL: No visual hallucinations.Intact judgment. Pleasant and cooperative. LABORATORY DATA White blood cell count 4.9, hemoglobin 14.4, MCV 96.2.INR 1. Sodium 142, potassium 3.7, chloride 105, anion gap 8, BUN 20, creatinine 1.08, AST 16, ALT 22, troponin less than 0.02. DIAGNOSTIC IMAGING - Head CT scan without contrast was stable compared to prior exam, revealed all stable areas of infarction in the right occipital lobe, right posterior parietal lobe and left posterior parietal lobe with no acute intracranial hemorrhage. - Brain MRI without contrast revealed focal acute/subacute right basal ganglia infarct with chronic ischemic infarcts. - Head MRA revealed nonocclusive thrombus of the right ICA with associated decreased filling of primarily the right MCA. PLAN 1. Neuro-checks q.4h. 2. Continue aspirin 81 and statin. 3. Telemetry. 4. Permissive hypertension for the next 24 hours, treat blood pressure greater than 220/120. 5. DVT prophylaxis with SCDs. 6. PT, OT and speech therapy recommendations are appreciated. 7. I discussed with the patient that she has already failed both Pradaxa and Eliquis and that she needs to be on different anticoagulation medication. I considered Coumadin, however, she declined using Coumadin, I consider Xarelto if cardiology consult service is is agreeable. Recommendations are appreciated. 8. Continue Keppra 250 mg twice daily. 9. CPAP for sleep apnea. Thank you for the opportunity to participate in the care of your patient. MD JENNIFFER Herbert/HERIBERTO /9:12 AM /12:39 PM [email or web address]
--- NOTE | 2016-04-23 13:36 | EKG ---
Date Performed: 04/22/2016 Time Performed: 14:58:34 PTAGE: 75 years EKG: ATRIAL FIBRILLATION WITH SLOW VENTRICULAR RATE MODERATE ST DEPRESSION Compared to previous tracing, the slow ventricular rate is new. The slight ST changes are no different. ABNORMAL ECG PREVIOUS TRACING : 02/21/2016 13.29 DOCTOR: Zaire Vroa Interpretating Date/Time 04/23/2016 13:35:50
[2016-04-23] MEDS: ACETAMINOPHEN 325 MG TAB PO PRN ×2 (15:16→21:37)
[2016-04-23] MEDS: ATORVASTATIN 40 MG TAB PO SCH (21:37)
[2016-04-24] MEDS: diphenhydrAMINE HCL 25 MG CAP PO PRN
[2016-04-24 00:36] VITALS: BP 119/80; PULSE 80; RESP 20; TEMP 96.3; O2SAT 98
[2016-04-24 05:09] VITALS: BP 143/70; PULSE 77; RESP 18; TEMP 96.5; O2SAT 95
[2016-04-24] MEDS: APIXABAN 5 MG TABLET PO SCH (05:53)
[2016-04-24] MEDS: ACETAMINOPHEN 325 MG TAB PO PRN ×2 (05:54→14:41)
[2016-04-24 08:00] VITALS: BP 138/84; PULSE 83; RESP 18; TEMP 96.5; O2SAT 93
[2016-04-24] MEDS: LIDOCAINE HCL 5% PATCH TD SCH (09:01)
[2016-04-24] MEDS: SERTRALINE HCL 50 MG TAB PO SCH (09:02)
[2016-04-24] MEDS: POTASSIUM CHLORIDE 10 MEQ CONTROLLED RELEASE TAB PO SCH (09:02)
[2016-04-24] MEDS: levETIRAcetam 250 MG TAB PO SCH (09:02)
[2016-04-24] MEDS: METOPROLOL TARTRATE 100 MG TAB PO SCH (09:02)
[2016-04-24] MEDS: LOSARTAN 25 MG TAB PO SCH (09:03)
[2016-04-24] MEDS: ASPIRIN EC 81 MG TABEC PO SCH (09:03)
[2016-04-24] MEDS: LISINOPRIL 20 MG TAB PO SCH (09:03)
[2016-04-24] MEDS: DILTIAZEM-CD 180 MG CAP ER PO SCH (09:03)
[2016-04-24] MEDS: SODIUM CHLORIDE 0.9% FLUSH 5 ML FLUSH IVF SCH (09:03)
[2016-04-24 10:42] VITALS: PULSE 88
--- NOTE | 2016-04-24 11:35 | HHI.PR ---
Subjective History of Present Illness I am ok No headche , no N/v No CP or SOB feels weak R shoulder arthritic pain , not too bad no abd pain no diarrhea offers no other c/o Vitals/Results Intake & Output 04/23/16 04/23/16 04/24/16 15:00 23:00 07:00 Intake Total 480 ml 240 ml Balance 480 ml 240 ml Intake Oral 480 ml 240 ml # Voids 3 2 3 # Bowel Movements 1 0 Vital Signs Vital Signs Date Time Temp Pulse Resp B/P Pulse Ox O2 Delivery O2 Flow Rate FiO2 04/24/16 10:42 88 04/24/16 08:15 93 Room Air 04/24/16 08:00 96.5 83 18 138/84 93 04/24/16 06:54 16 04/24/16 05:09 96.5 77 18 143/70 95 04/24/16 01:00 97 04/24/16 00:36 96.3 80 20 119/80 98 04/23/16 21:47 97 04/23/16 20:00 96.2 79 20 120/67 97 04/23/16 19:55 68 04/23/16 16:15 96.5 100 18 121/84 96 04/23/16 12:24 97.1 76 20 132/79 96 CBC/BMP: 04/22/16 1540 04/22/16 1540 Physical Exam General General Appearance: No Acute Distress, Comfortable Eyes Eye Exam: Pupils Equal, Sclera White, Extraocular Movement Intact Ears & Nose Ears & Nose Exam: Nasal Mucosa [place] Throat Throat Exam: Oral Mucosa [place] & Moist Neck Neck Exam: Neck Supple, Trachea Midline Pulmonary Resp Exam: Clear Bilaterally, Breath Sounds Equal Cardiology CV Exam: Irregular, Arrhythmia Gastrointestinal/Abdomen GI Exam: Soft, Non-Tender, Bowel Sounds Present Integumentary Skin Exam: Warm Extremeties Extremities Exam: No Edema, Pedal Pulses Palpable Neurologic Neuro Exam: Alert, Awake, Oriented, Speech Clear, Moving All Extremities Psychiatric Psych Exam: Appropriate Responses Assessment/Plan Assessment/Plan 1) Left leg weakness (2) History of CVA (cerebrovascular accident) (3) Hypertension (4) Hyperlipidemia (5) CAD (coronary artery disease) (6) Vision loss (7) Anxiety (8) Atrial fibrillation (9) COPD (chronic obstructive pulmonary disease) (10) Arthritis (11) Seizure prophylaxis Assessment and Plan 75-y.o white female with hx of recent CVA x 07 February 2016, was on Pradaxa several years, was changed to Eliquis. Prior to admit, hx of CVA x 2, had been on Coumadin which was changed to Pradaxa. Has residual generalized weakness , poor peripheral vision. Currently undergoing rehab at [facility]. Pt. brought in for evaluation of left leg weakness. CT head negative. Admitted for recurrent CVA. -neuro checks -Neurology input appreciated Dr. Soni, recommends XARELTO as pt. has failed on previous anticoagulants. -d/c Eliquis. [ Pt. has been on Coumadin and Pradaxa in past]. 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 alternatively pt can go back to [facility] d/w PT d/w Wayne Garg MD Apr 24, 2016 11:34
[2016-04-24 12:00] VITALS: BP 161/78; PULSE 81; RESP 18; TEMP 97.7; O2SAT 94
[2016-04-24] MEDS ORDERED: XARE20TA PO (12:34)
[2016-04-24] MEDS ORDERED: TRAM50TA PO (12:34)
[2016-04-24 12:56] LABS: HEMATOCRIT 41.1 % (35.0-46.0); MEAN CELL VOLUME 95.3 FL (80.0-100.0); MEAN CORPUSCULAR HEMOGLOBIN 32.5 PG (27.0-34.0); MEAN CORPUSCULAR HGB CONC 34.1 % (32.0-36.0); PLATELET COUNT 244 TH/MM3 (150-450); RED BLOOD COUNT 4.32 MIL/MM3 (4.00-5.30); RED CELL DISTRIBUTION WIDTH 13.5 % (11.6-17.2); REVIEW FLAG FINAL; WHITE BLOOD COUNT 8.8 TH/MM3 (4.0-11.0)
[2016-04-24 13:16] LABS: BICARBONATE 27.8 MEQ/L (21.0-32.0); POTASSIUM 3.6 MEQ/L (3.5-5.1)
[2016-04-24] MEDS ORDERED: TRIAMTERENE/HCTZ 37.5 MG/25 MG CAP PO SCH (15:00)
[2016-04-24 16:00] VITALS: BP 135/68; PULSE 69; RESP 18; TEMP 96.4; O2SAT 97
[2016-04-24] MEDS ORDERED: RIVAROXABAN 20 MG TAB PO SCH ×2 (16:00→18:00)
[2016-04-24] MEDS ORDERED: ALPRAZolam 0.25 MG TAB PO ONE (17:30)
--- NOTE | 2016-04-24 17:33 | HHI.DCPOC ---
Discharge Care Plan Diagnosis: (1) Left leg weakness (2) History of CVA (cerebrovascular accident) (3) COPD (chronic obstructive pulmonary disease) (4) Atrial fibrillation (5) Anxiety (6) Arthritis (7) Vision loss (8) CAD (coronary artery disease) (9) Hyperlipidemia (10) Seizure prophylaxis Your Health Problems Are: Loss of Movements Goals to Promote Your Health * To prevent worsening of your condition and complications * To maintain your health at the optimal level Directions to Meet Your Goals Take your medications as prescribed Follow your dietary instruction Follow activity as directed Keep your appointments as scheduled Take your immunizations and boosters as scheduled If your symptoms worsen call your PCP, if no PCP go to Urgent Care Center or Emergency Room Smoking is Dangerous to Your Health. Avoid second hand smoke Call the 24-hour hour crisis hotline for domestic abuse at Fiorella Watson Apr 24, 2016 17:33
--- NOTE | 2016-04-24 17:39 | HHI.DS ---
Discharge Summary Admission Date Apr 22, 2016 at 17:07 Discharge Date: Apr 24, 2016 Admitting Diagnosis stroke (1) right basal ganglia infarct Diagnosis: Principal (2) Left leg weakness (3) History of CVA (cerebrovascular accident) (4) Hypertension (5) Hyperlipidemia (6) CAD (coronary artery disease) (7) Vision loss (8) Anxiety (9) Atrial fibrillation (10) COPD (chronic obstructive pulmonary disease) (11) Arthritis (12) Seizure prophylaxis CBC/BMP: 04/24/16 1225 04/24/16 1225 Significant Findings Laboratory Tests Test 04/22/16 04/22/16 04/23/16 04/24/16 15:40 16:50 06:40 12:25 White Blood Count 12.9 TH/MM3 (4.0-11.0) Neutrophils (%) (Auto) 77.8 % (16.0-70.0) Neutrophils # (Auto) 10.0 TH/MM3 (1.8-7.7) Monocytes # (Auto) 1.0 TH/MM3 (0-0.9) Neutrophils % (Manual) 84 % (16-70) Neutrophils # (Manual) 10.8 TH/MM3 (1.8-7.7) Blood Urea Nitrogen 20 MG/DL (7-18) Creatinine 1.08 MG/DL (0.50-1.00) Estimat Glomerular Filtration 50 ML/MIN (>89) Rate Random Glucose 147 MG/DL 121 MG/DL (74-106) (74-106) Hemoglobin A1c 6.6 % (4.3-6.0) Alkaline Phosphatase 131 U/L (45-117) Troponin I LESS THAN 0.02 NG/ML (0.02-0.05) Albumin 3.2 GM/DL (3.4-5.0) Urine Mucus FEW /lpf (OCC) Cholesterol Level 119 MG/DL (120-200) Imaging Last Impressions Head CT 04/22/16 1449 Signed Impressions: Service Date/Time: Friday, April 22, 2016 15:19 - CONCLUSION: 1. Stable CT scan of the brain compared to the prior examination. 2. Stable areas of previously noted bilateral infarction. 3. No acute intracranial hemorrhage. Jeanmarie Alves MD Head Magnetic Resonance Angiography 04/22/16 0000 Signed Impressions: Service Date/Time: Friday, April 22, 2016 18:04 - CONCLUSION: Nonocclusive thrombosis of the right internal carotid artery with associated decreased filling of primarily the right middle cerebral artery distribution. Kristopher Barr MD Brain MRI 04/22/16 0000 Signed Impressions: Service Date/Time: Friday, April 22, 2016 18:04 - CONCLUSION: 1. Focal acute or subacute right basal ganglia infarct. 2. Otherwise chronic ischemic/infarct changes as above. 3. No acute bleed. No mass effect or midline shift. Kristopher Barr MD Hospital Course This is a 75-y.o white female who's undergoing rehab at [facility]. Pt. brought in for evaluation of left leg weakness. Pt. has PMHx of atrial fibrillation, chronic anticoagulation on Pradaxa, prior CVA 2, coronary artery disease, myocardial infarction in the past, sleep apnea on CPAP, tobacco abuse, COPD. Patient was recently admitted to the hospital from 02/19/2016 to for acute left basal ganglia and left thalamus infarct. Patient had been on Pradaxa prior to admission for history of CVA. Pt. discharged to [facility] however when she arrived to the unit, she complained of new visual field defect. A stroke alert was called and patient was transferred to ICU for evaluation. Imaging studies were completed, brain MRI showed acute left occipital and parietal lobe infarcts. CTA showed no acute occlusions. Distal internal carotid FMD well above the bifurcation both sides, localized perhaps 50 % occlusive. Dr. Hernández and neuro was consulted, evaluated patient and did not believe the patient would benefit for any vascular intervention as she had no significant stenosis, they continued her Eliquis, aspirin and statin. An EEG was completed showing bitemporal sharp, and pt. was started on Keppra. Pt. went to [facility] and was discharged to [facility] to continue rehab. Pt. evaluated in the ED, daughter at [facility]. Pt. is a poor historian but knows why she is in hospital. Per ED report, pt. went for PT today and therapist noted that pt. was dragging left leg which was a new finding. Per daughter, pt. was independent prior to rehab placement. At facility she has been progressing slowly, can only stand and pivot, only ambulating very little with assistance. Pt. denies any paresthesias, no slurring of speech, no headaches. Has poor peripheral vision from recent strokes and has become "worst". Pt. denies any other symptoms, no CP, no SOB, no fever, no chills, no abdominal pain, no diarrhea, no urinary symptoms. Pt. was evaluated in the ED, CT of head done did not show acute findings, stable areas of prior strokes. Last [address] 04/22/16 1449 Signed Impressions: Service Date/Time: Friday, April 22, 2016 15:19 - CONCLUSION: 1. Stable CT scan of the brain compared to the prior examination. 2. Stable areas of previously noted bilateral infarction. 3. No acute intracranial hemorrhage. Jeanmarie Alves MD Laboratory work up essentially unremarkable except for mild creat elevation and leukocytosis. Per daughter, pt. was on Coumadin initially but was stopped due to "body and joint aches", then was changed to Pradaxa until February. Because of recurrent strokes, she was recommended Coumadin but did not want to do the frequent lab testing therefore she was put on Eliquis. Pt. has been compliant taking medications. Pt. was resting comfortably in ED, had no complaints. She did complain of dizziness to ED physician, but none at this time. Stated that she did notice that her left leg was weaker when she woke up this morning but did not notify staff. Pt. admitted for further evaluation and treatment for: 1) Left leg weakness (2) History of CVA (cerebrovascular accident) (3) Hypertension (4) Hyperlipidemia (5) CAD (coronary artery disease) (6) Vision loss (7) Anxiety (8) Atrial fibrillation (9) COPD (chronic obstructive pulmonary disease) (10) Arthritis (11) Seizure prophylaxis During hospitalization course the following took place: 75-y.o white female with hx of recent CVA x 07 February 2016, was on Pradaxa several years, was changed to Eliquis. Prior to admit, hx of CVA x 2, had been on Coumadin which was changed to Pradaxa. Has residual generalized weakness , poor peripheral vision. Currently undergoing rehab at SNF. Pt. brought in for evaluation of left leg weakness. CT head negative. Admitted for recurrent CVA. 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 Soni, recommends XARELTO as pt. has failed on previous anticoagulants. -d/cd Eliquis. [ Pt. has been on Coumadin and Pradaxa in past]. started xarelto 2 hrs prior to next dose of eliquis -Continue statins, ASA -Had recent Echo, not needed. -Telemetry monitoring -PT/OT/ST -OOB with PT -CIR evaluated. Atrial fibrillation, well controlled-stable -Telemetry monitoring -continued Lopressor and Cardizem - Changed to Xarelto Seizure disorder -Seizure precautions -Continue Keppra HTN, stable -Continue home meds COPD, stable -Duonebs PRN Sleep apnea -Continue CPAP OA right shoulder -Lidocaine patch -Tylenol PRN No additional treatment for DVT prophylaxis CM discharge planning, back to SNF when arrangements are made Charbel is evaluating the pt . alternatively pt [facility] go [facility] if [facility] will not accept Stable for discharge F/U Dr. Soni, cardiology Diet-heart healthy Activity-as tolerated. Pt Condition on Discharge: Stable Discharge Disposition: Discharge to SNF Discharge Instructions DIET: Follow Instructions for: Heart Healthy Diet Fluid Restrictions: none Activities you can perform: Regular-No Restrictions Other Activity Instructions: fall precautions Follow up Referrals: Neurology - 2 Weeks PCP Follow-up - 1 Week New Medications: Tramadol (Tramadol) 50 Mg Tab 50 MG PO Q4H PRN PAIN #40 Ref 0 TAB Rivaroxaban (Xarelto) 20 Mg Tab 20 MG PO Q24H atrial fibrillation #30 TAB Continued Medications: Acetaminophen (Acetaminophen) 500 Mg Tab 1000 MG PO Q8HR PRN PAIN SCALE 1 TO 10 Days [address] (Aspirin EC) 81 Mg Tabdr 81 MG PO DAILY clot prevention #30 TAB Atorvastatin (Lipitor) 40 Mg Tab 40 MG PO HS cholesterol management #30 Ref 0 TAB Diltiazem CD 24 HR (Cardizem CD 24 HR) 180 Mg Caper 180 MG PO DAILY heart rate Days 30 CAP Levetiracetam (Keppra) 250 Mg Tab 250 MG PO Q12HR #60 TAB Lidocaine Patch 12 HR (Lidocaine Patch 12 HR) 5 % Patch 1 PATCH TOPICAL BID Remove patch after 12 hours Pain Management Ref 0 BOX Lisinopril (Lisinopril) 40 Mg Tab 40 MG PO DAILY Blood Pressure Management #30 Ref 0 TAB Losartan (Losartan) 25 Mg Tab 25 MG PO DAILY Blood Pressure Management Ref 0 TAB Magnesium Oxide (Magnesium Oxide) 500 Mg Tab 500 MG PO DAILY Ref 0 TAB Melatonin (Melatonin) 5 Mg Tab 6 MG PO HS Provide Good Sleep Ref 0 TAB Metoprolol Tartrate (Metoprolol Tartrate) 100 Mg Tab 100 MG PO BID #60 Ref 0 TAB Multiple Vitamins W/ Minerals (Centrum Silver) 1 Tab 1 TAB PO DAILY Nutritional Supplement #30 Ref 0 TAB Potassium Chloride ER (Klor-Con 10) 10 Meq Tab 10 MEQ PO DAILY Electrolyte Replacement #30 Ref 0 TAB Sertraline (Sertraline) 50 Mg Tab 50 MG PO DAILY #30 Ref 0 TAB Triamterene-Hydrochlorothiazide (Triamterene-Hydrochlorothiazide) 50-25 Mg Cap 1 CAP PO DAILY Ref 0 CAP Discontinued Medications: Alprazolam (Xanax) 0.25 Mg Tab 0.25 MG PO HS Anxiety and/or Insomnia #30 Ref 0 TAB Apixaban (Eliquis) 5 Mg Tab 5 MG PO Q12H Stroke Prevention #60 Ref 0 TAB Tramadol (Tramadol) 50 Mg Tab 2 TAB PO Q4H PRN PAIN Ref 0 TAB Fiorella Watson Apr 24, 2016 17:39
--- NOTE | 2016-04-24 17:43 | HHI.PR ---
Review/Management Diagnosis -Acute ischemic infarction -right basal ganglia -H/o chronic ischemic infarcts - A fib DIAGNOSTIC IMAGING - Head CT scan without contrast was stable compared to prior exam, revealed all stable areas of infarction in the right occipital lobe, right posterior parietal lobe and left posterior parietal lobe with no acute intracranial hemorrhage. - Brain MRI without contrast revealed focal acute/subacute right basal ganglia infarct with chronic ischemic infarcts. - Head MRA revealed nonocclusive thrombus of the right ICA with associated decreased filling of primarily the right MCA. Plan PLAN - Neuro-checks q.4h. - Continue aspirin 81 and statin. - Telemetry. - Manage BP with home medications - DVT prophylaxis with SCDs. - PT, OT and speech therapy recommendations are appreciated. - Started on Xarelto 20mg nightly In light of the failure of both Pradaxa and Eliquis, and that she needs to be on different anticoagulation medication, and that she declined Coumadin, the decision was made to start Xarelto - Continue home dose of Keppra 250 mg twice daily. - CPAP for sleep apnea. Diagnosis/Plan: Subjective Subjective Comments No acute events reported No new complaint Patient states that she feels better Active Medications Current Medications Medications (Trade) Dose Ordered Sig/Anthony Route Start Time Stop Time Status Last Admin (NS Flush) 2 ml BID IVF 04/22/16 21:00 04/24/16 09:03 (NS Flush) 2 ml UNSCH PRN IVF 04/22/16 17:15 (Trandate Inj) 10 mg Q2H PRN IV 04/22/16 17:15 (Ecotrin Ec) 81 mg DAILY PO 04/23/16 09:00 04/24/16 09:03 (Lipitor) 40 mg HS PO 04/22/16 21:00 04/23/16 21:37 (Cardizem Cd) 180 mg DAILY PO 04/23/16 09:00 04/24/16 09:03 (Keppra) 250 mg Q12HR PO 04/22/16 21:00 04/24/16 09:02 (Prinivil) 40 mg DAILY PO 04/23/16 09:00 04/24/16 09:03 (Cozaar) 25 mg DAILY PO 04/23/16 09:00 04/24/16 09:03 (Lopressor) 100 mg BID PO 04/22/16 21:00 04/24/16 09:02 (KCl) 10 meq DAILY PO 04/23/16 09:00 04/24/16 09:02 (Zoloft) 50 mg DAILY PO 04/23/16 09:00 04/24/16 09:02 (Lidoderm 5% Patch.12 Hr) 1 patch Q24H TD 04/23/16 09:00 04/24/16 09:01 Miscellaneous Information 1 Q24H TD 04/22/16 21:00 04/22/16 21:00 (Benadryl) 25 mg HS PRN PO 04/23/16 01:15 04/24/16 00:00 (Tylenol) 650 mg Q4H PRN PO 04/23/16 15:00 04/24/16 14:41 (Xarelto) 20 mg Q24H PO 04/24/16 16:00 04/24/16 16:27 (Dyazide 37.5-25 Mg) 1 cap DAILY PO 04/24/16 15:00 04/24/16 16:22 Allergies Allergies Coded Allergies No Known Allergies (Verified04/22/16) Review of Systems All other ROS: ROS reviewed as documented in chart Exam I&O / VS 04/23/16 04/23/16 04/24/16 15:00 23:00 07:00 Intake Total 480 ml 240 ml Balance 480 ml 240 ml Intake Oral 480 ml 240 ml # Voids 3 2 3 # Bowel Movements 1 0 Vital Signs Date Time Temp Pulse Resp B/P Pulse Ox O2 Delivery O2 Flow Rate FiO2 04/24/16 16:00 96.4 69 18 135/68 97 04/24/16 16:00 16 04/24/16 12:00 97.7 81 18 161/78 94 04/24/16 10:42 88 04/24/16 08:15 93 Room Air 04/24/16 08:00 96.5 83 18 138/84 93 04/24/16 05:09 96.5 77 18 143/70 95 04/24/16 01:00 97 04/24/16 00:36 96.3 80 20 119/80 98 04/23/16 21:47 97 04/23/16 20:00 96.2 79 20 120/67 97 04/23/16 19:55 68 General: Alert and Oriented, No acute distress Eye: EOMI Respiratory: Lungs CTA, Non-labored respirations, Symmetrical expansion Cardiology: Normal rate, Intact pulses, Irregular Rhythm Musculoskeletal: ROM, Tenderness, Other Neurologic: Alert, Oriented Psychiatric: Cooperative, Appropriate mood & affect, Normal judgement, Non- suicidal Exam Comments GENERAL: Well-nourished, pleasant, good historian, not in apparent distress. At the beginning of the encounter she was using the CPAP. HEENT: Atraumatic, normocephalic. Intact hearing bilaterally. Diminished temporal visual mendes due to recurrent strokes. NECK: No JVD. Supple. Nontender. No meningeal signs. No carotid bruits. CARDIOVASCULAR: Regular rate and rhythm. RESPIRATORY: Clear to auscultation. No wheezes. MUSCULOSKELETAL: Limited range of movement of the right shoulder because of pain and this is chronic with limitation with pain and moving both hips due to chronic pain. Moves all extremities. No abnormal posture. NEUROLOGIC: Awake, alert and oriented to time, person and place. Intact speech content. Cranial nerves II-XII are grossly intact. No facial drooping is noted. Motor system examination is limited due to generalized joint pains. Documents the accuracy of the test, however, the patient is grossly 5/5 throughout except for 5-/5 left hip flexion and left knee extension. Reflexes are 1+ bilateral in the upper extremities, crossed adductor reflex. Plantars are bilaterally downgoing. Sensation is intact throughout bilateral and symmetrical. Cerebellar signs are intact bilateral and symmetrical [id number] and [id number]. PSYCHOLOGICAL: No visual hallucinations.Intact judgment. Pleasant and cooperative. Objective Radiology Results Last [address] 04/22/16 1449 Signed Impressions: Service Date/Time: Friday, April 22, 2016 15:19 - CONCLUSION: 1. Stable CT scan of the brain compared to the prior examination. 2. Stable areas of previously noted bilateral infarction. 3. No acute intracranial hemorrhage. Jeanmarie Alves MD Head Magnetic Resonance Angiography 04/22/16 0000 Signed Impressions: Service Date/Time: Friday, April 22, 2016 18:04 - CONCLUSION: Nonocclusive thrombosis of the right internal carotid artery with associated decreased filling of primarily the right middle cerebral artery distribution. Kristopher Barr MD Brain MRI 04/22/16 0000 Signed Impressions: Service Date/Time: Friday, April 22, 2016 18:04 - CONCLUSION: 1. Focal acute or subacute right basal ganglia infarct. 2. Otherwise chronic ischemic/infarct changes as above. 3. No acute bleed. No mass effect or midline shift. Kristopher Barr MD Micro and Labs Laboratory Tests Test 04/24/16 12:25 White Blood Count 8.8 Red Blood Count 4.32 Hemoglobin 14.0 Hematocrit 41.1 Mean Corpuscular Volume 95.3 Mean Corpuscular Hemoglobin 32.5 Mean Corpuscular Hemoglobin 34.1 Concent Red Cell Distribution Width 13.5 Platelet Count 244 Mean Platelet Volume 8.9 Sodium Level 142 Potassium Level 3.6 Chloride Level 106 Carbon Dioxide Level 27.8 Anion Gap 8 Blood Urea Nitrogen 13 Creatinine 0.65 Estimat Glomerular Filtration 89 Rate Random Glucose 121 Calcium Level 8.8 Mai Soni MD Apr 24, 2016 17:43
== END 2016-04-24 20:00 | DRG 66 ==
LOC: NEPE 14:35 → NEDA 17:07 → N05A 20:28
PROVIDERS: ADMIT Specialist; ATTEND Specialist
DX: I63.9 Cerebral infarction, unspecified (principal); R53.1 Weakness; I48.91 Unspecified atrial fibrillation; J44.9 Chronic obstructive pulmonary disease, unspecified; G40.909 Epilepsy, unspecified, not intractable, without status epilepticus; I10 Essential (primary) hypertension; E78.5 Hyperlipidemia, unspecified; G47.30 Sleep apnea, unspecified; F41.9 Anxiety disorder, unspecified; H54.7 Unspecified visual loss; J45.909 Unspecified asthma, uncomplicated; Z86.73 Personal history of transient ischemic attack (TIA), and cerebral infarction without residual deficits; I25.10 Atherosclerotic heart disease of native coronary artery without angina pectoris; I25.2 Old myocardial infarction; Z96.653 Presence of artificial knee joint, bilateral; Z91.81 History of falling; Z87.891 Personal history of nicotine dependence; Z79.01 Long term (current) use of anticoagulants; H53.40 Unspecified visual field defects; H91.90 Unspecified hearing loss, unspecified ear; M19.011 Primary osteoarthritis, right shoulder
CPT/HCPCS: 70450; 70544; 70551; 80048; 80053; 80061; 81001; 82607; 82948; 83036; 84443; 84484; 85007; 85027; 85610; 85730; 86592; 93005